=== PATIENT | female | born 1950 | race Hispanic/Latino ===

== ENCOUNTER → 2018-06-10 | Outpatient (CLI) | payer MEDICARE | END | disposition home or self-care (01) | LOC: RAH 15:51 | PROVIDERS: ATTEND Physical Medicine & Rehabilitation | DX: R22.42 Localized swelling, mass and lump, left lower limb (principal) | CPT/HCPCS: 93971 ==

== ENCOUNTER → 2018-07-15 | Outpatient (CLI) | payer MEDICARE | END | disposition home or self-care (01) | LOC: RAH 10:47 | PROVIDERS: ATTEND Physical Medicine & Rehabilitation | DX: G81.14 Spastic hemiplegia affecting left nondominant side (principal); R90.82 White matter disease, unspecified | CPT/HCPCS: 70551 ==

== ENCOUNTER → 2018-10-22 | Outpatient (CLI) | payer MEDICARE | END | disposition home or self-care (01) | LOC: OIH 15:27 | PROVIDERS: ATTEND Internal Medicine | DX: M19.041 Primary osteoarthritis, right hand (principal) | CPT/HCPCS: 73130 ==